=== PATIENT | female | born 1980 | race Caucasian/White ===

== ENCOUNTER 2022-11-08 10:58 | Outpatient (REF) | payer OTHER, SELFPAY ==
[2022-11-08 14:08] LABS: Ferritin 32 ng/mL (10-250)
[2022-11-08 14:20] LABS: Vitamin B12 666 pg/mL (200-900)
[2022-11-13 12:28] LABS: Vitamin D 25-OH, D2 <4 ng/mL; Vitamin D 25-OH, D3 18 ng/mL; Vitamin D 25-OH, Total 18 ng/mL (30-100)
== END 2022-11-08 10:59 | disposition home or self-care (01) ==
LOC: HO.LAB 10:58
PROVIDERS: PCP Internal Medicine; Visit Provider Nurse Practitioner Family
DX: E55.9 Vitamin D deficiency, unspecified (principal); R53.83 Other fatigue; E66.01 Morbid (severe) obesity due to excess calories; R06.83 Snoring; G25.81 Restless legs syndrome; R40.0 Somnolence; D64.9 Anemia, unspecified
CPT/HCPCS: 36415; 82306; 82607; 82728; 82746